=== PATIENT | female | born 1990 | race Caucasian/White ===

== ENCOUNTER 2016-07-21 08:21 | Day surgery (SDC) | payer OTHER ==
--- NOTE | 2016-07-20 07:43 | HP ---
Alexandra Brito [id number] DATE OF PROCEDURE: 07/21/2016 PREOPERATIVE DIAGNOSIS: Displacement of the intrauterine contraceptive device. PROCEDURE: Hysteroscopic of intrauterine contraceptive device and replacement with Paragard intrauterine contraceptive device. HISTORY AND PHYSICAL: The patient is a 25-year-old female who had recent consultation for insertion of Paragard copper intrauterine device. This was placed on 06/20/2016, however, upon insertion the string did detach from the base of the intrauterine device and it was uncertain where the intrauterine device was inserted. An ultrasound was performed which showed the intrauterine device partially within the cervical canal as well as the lower uterine segment. PAST MEDICAL HISTORY: Patient has had one spontaneous . She had a history of Trichomonas which was treated. She had a history of depression. PAST SURGICAL HISTORY: Negative. ALLERGIES: No known drug allergies. MEDICATIONS: Patient is currently not on any active medications. PHYSICAL EXAMINATION: GENERAL: Patient is in no apparent distress. HEART: Regular rate and rhythm. LUNGS: Clear to auscultation bilaterally. ABDOMEN: Nontender and nondistended. PELVIC: Cervix is closed and smooth with discharge or lesions. There is no intrauterine device string which is noted from the cervical os. The uterus is nontender. ASSESSMENT AND PLAN: This is a 25-year-old female with displaced intrauterine device. Our plan is for hysteroscopic removal and replacement with another Paragard device. The procedure indications and risks have been reviewed including risk of bleeding, infection, or uterine perforation. Preoperative instructions and postoperative expectations have been reviewed. Patient will have a CBC, HCG, and basic metabolic panel performed prior to the procedure. JOB: [id number]
[~2016-07-21 08:21] MED LIST: CEFAZOLIN SODIUM 2 GRAM PREMIX 100 ML IV ONE; IV START KIT ONE; LACTATED RINGERS 1,000 ML ONE
[2016-07-21] MEDS ORDERED: LORAZEPAM 1 MG TABLET PO ONE (08:30)
[2016-07-21] MEDS ORDERED: LIDOCAINE 1% 2 ML VIAL ID PRN (08:40)
[2016-07-21] MEDS ORDERED: LACTATED RINGERS 1,000 ML IV SCH ×3 (08:40→12:00)
[2016-07-21] MEDS ORDERED: CEFAZOLIN SODIUM 2 GRAM DUPLEX 2 G in Premix (D5W) 50 ml 1 EACH IV PRN (08:40)
[2016-07-21] MEDS ORDERED: MIDAZOLAM HCL 1 MG/ML 2ML VIAL ONE (09:44)
[2016-07-21] MEDS ORDERED: FENTANYL 100 MCG/2 ML VIAL ONE (09:44)
[2016-07-21] MEDS ORDERED: LIDOCAINE 2% (MULTI DOSE) 10 ML VIAL ONE (10:05)
[2016-07-21] MEDS ORDERED: DEXAMETHASONE SOD PHOS 4 MG/1 ML VIAL ONE (10:42)
[2016-07-21] MEDS ORDERED: ONDANSETRON 4 MG/2ML 2 ML VIAL ONE (10:42)
[2016-07-21] MEDS ORDERED: ACETAMINOPHEN 325 MG TABLET PO PRN (11:43)
[2016-07-21] MEDS ORDERED: OXYCODONE/ACETAMINOPHEN 5/325 MG TABLET PO PRN (11:43)
[2016-07-21] MEDS ORDERED: IBUPROFEN 800 MG TABLET PO PRN (11:43)
[2016-07-21] MEDS ORDERED: ONDANSETRON 4 MG/2ML 2 ML VIAL IV PRN (11:51)
[2016-07-21] MEDS ORDERED: NALOXONE HCL 0.4 MG/ML VIAL IV PRN (11:51)
[2016-07-21] MEDS ORDERED: MORPHINE SULFATE 4 MG/ML SYRINGE IV PRN (11:51)
[2016-07-21] MEDS ORDERED: ATROPINE SULFATE 0.4 MG/1 ML VIAL IV PRN (11:51)
[2016-07-21] MEDS ORDERED: PROMETHAZINE HCL 25 MG/ML VIAL IM PRN (11:51)
[2016-07-21] MEDS ORDERED: MEPERIDINE 25 MG/ML SYRINGE IV PRN (11:51)
[2016-07-21] MEDS ORDERED: LABETALOL HCL 5 MG/ML 20ML VIAL IV PRN (11:51)
--- NOTE | 2016-07-21 13:00 | OP ---
Alexandra Brito [id number] DATE OF PROCEDURE: 07/21/2016 PREOPERATIVE DIAGNOSIS: Displacement of intrauterine device. POSTOPERATIVE DIAGNOSIS: Displacement of a intrauterine device. PROCEDURE: 1. Hysteroscopic removal of Paragard intrauterine device. 2. Placement of a second Paragard intrauterine device. SURGEON: Stephen Velazquez M.D. ANESTHESIA: General. ESTIMATED BLOOD LOSS: Minimal. COMPLICATIONS: None. OPERATIVE FINDINGS: Include a uterus which was retroverted and the intrauterine device was noted to be in the internal cervical os and lower uterine segment. The uterus was sounded to 7 cm. OPERATIVE COURSE: The patient was taken to the operating room and placed under general anesthesia. The patient was placed in lithotomy and prepped and draped in a sterile fashion. Bladder was emptied with a straight catheter. A bivalve speculum was then placed and the cervix was grasped with a single tooth tenaculum. The cervix was dilated slowly with small Keri dilators and due to the patient's multiparous status we required slow sequential dilation. Subsequently, we were able to dilate adequately to be able to sound the uterus which was 7 cm. There is no evidence of perforation. The hysteroscope was then placed in the internal cervical os and the string and intrauterine device were able to be visualized. This again took several attempts to grasp and remove the intrauterine device and subsequently after the third attempt was able to be removed. The intrauterine device was examined and found to be complete with no breaks or missing parts. The uterus was then sounded to 7 cm and a second intrauterine device was then placed to the fundus and the string was then trimmed to 4 cm. The procedure was concluded at this point. The patient was then recovered from anesthesia and taken to the recovery room in stable condition. JOB: [id number]
[2016-07-21] MEDS ORDERED: IBUPROFEN 800 MG TABLET ONE (13:39)
== END 2016-07-21 14:25 | disposition home or self-care (01) ==
LOC: SDC 08:21
PROVIDERS: ATTEND Obstetrics & Gynecology
PROC: 2Y54X5Z Removal of Female Genital Tract Packing Material (ICD-10-PCS; principal; 2016-07-21)
PROC: 0UH97HZ Insertion of Contraceptive Device into Uterus, Via Natural or Artificial Opening (ICD-10-PCS; 2016-07-21)
DX: T83.32XA Displacement of intrauterine contraceptive device, initial encounter (principal); Z30.433 Encounter for removal and reinsertion of intrauterine contraceptive device; Z87.440 Personal history of urinary (tract) infections
CPT/HCPCS: 58562; 58300; A9270 ×2; J1100; J2405; J7120; J2001; J0690